=== PATIENT | male | born 1985 | race Two or more races ===

== ENCOUNTER 2025-02-01 06:09 | Day surgery (SDC) | payer OTHER ==
[2025-02-01] MEDS ORDERED: DIPHENHYDRAMINE HCL 50 MG/ML VIAL 1ML IV ONE (10:00)
[2025-02-01] MEDS ORDERED: fentaNYL CITRATE 50 MCG/ML AMPUL IV PUSH ONE (10:00)
[2025-02-01] MEDS ORDERED: MIDAZOLAM HCL 2 MG/2 ML VIAL IV ONE (10:00)
== END 2025-02-01 10:55 | disposition home or self-care (01) ==
LOC: AMB-ENDOS 06:09
PROVIDERS: ATTEND Colon & Rectal Surgery
DX: K62.1 Rectal polyp (principal)